=== PATIENT | male | born 1975 | race Caucasian/White ===

== ENCOUNTER 2016-05-28 01:34 | Observation (INO) | payer MEDICAID ==
[2016-05-28] MEDS ORDERED: ONDANSETRON 4 MG/2 ML VIAL IVP STA (02:16)
[2016-05-28] MEDS ORDERED: HYDROmorphone 1 MG/ML SYRINGE ONE ×3 (02:25→09:15)
[2016-05-28] MEDS ORDERED: ONDANSETRON 4 MG/2 ML VIAL ONE (02:25)
[2016-05-28] MEDS: HYDROmorphone 1 MG/ML SYRINGE IVP STA ×2 (02:28→10:38)
[2016-05-28] MEDS ORDERED: IOPAMIDOL-300 100 ML VIAL IVP ONE (03:26)
[2016-05-28] MEDS ORDERED: HYDROmorphone 1 MG/ML SYRINGE IVP STA (05:09)
[2016-05-28] MEDS ORDERED: ONDANSETRON 4 MG/2 ML VIAL IVP PRN (05:25)
[2016-05-28] MEDS: LACTATED RINGERS 1,000 ML IV SCH ×3 (06:32→10:05)
[2016-05-28] MEDS: AMPICILLIN/SULBACTAM 3 GM in SODIUM CHLORIDE 0.9% MINIBAG 100 ML IV SCH ×2 (06:32→11:29)
[2016-05-28] MEDS ORDERED: fentaNYL 100 MCG/2 ML VIAL IVP ONE (07:05)
[2016-05-28] MEDS ORDERED: LIDOCAINE-MPF 2% 5 ML VIAL IM ONE (07:05)
[2016-05-28] MEDS ORDERED: GLYCOPYRROLATE 1 MG/5 ML VIAL IVP ONE (07:05)
[2016-05-28] MEDS ORDERED: DEXAMETHASONE 4 MG/ML VIAL IVP ONE (07:05)
[2016-05-28] MEDS ORDERED: KETOROLAC 30 MG/ML VIAL IVP ONE (07:05)
[2016-05-28] MEDS ORDERED: PROPOFOL 200 MG/20 ML VIAL IVP ONE (07:05)
[2016-05-28] MEDS ORDERED: ONDANSETRON 4 MG/2 ML VIAL IVP ONE (07:05)
[2016-05-28] MEDS ORDERED: MIDAZOLAM 2 MG/2 ML VIAL IVP ONE (07:05)
[2016-05-28] MEDS ORDERED: NEOSTIGMINE 1 MG/1 ML 10 ML MDV IVP ONE (07:05)
[2016-05-28] MEDS ORDERED: ROCURONIUM 50 MG/5 ML VIAL IVP ONE (07:05)
[2016-05-28] MEDS ORDERED: SUCCINYLCHOLINE 200 MG/10 ML VIAL IVP ONE (07:05)
[2016-05-28] MEDS ORDERED: LACTATED RINGERS 1,000 ML IV ONE ×2 (07:17→08:12)
[2016-05-28] MEDS ORDERED: LIDOCAINE 1%-EPI 1:100000 20 ML MDV SUBQ ONE ×2 (07:39→08:32)
[2016-05-28] MEDS ORDERED: BUPIVACAINE 0.5% PF 30 ML VIAL SUBQ ONE ×2 (07:39→08:32)
[2016-05-28] MEDS: HYDROmorphone 1 MG/ML SYRINGE IVP PRN ×5 (09:18→13:29)
[2016-05-28] MEDS: fentaNYL 100 MCG/2 ML VIAL ONE ×2 (09:33→09:39)
[2016-05-28] MEDS ORDERED: BENZOCAINE/MENTHOL LOZENGE MM ONE (10:09)
[2016-05-28] MEDS: oxyCOD/ACETAMIN 5 MG/325 MG TABLET PO PRN ×2 (10:38→14:27)
[2016-05-28] MEDS ORDERED: HYDROmorphone 1 MG/ML SYRINGE IVP SCH (12:00)
== END 2016-05-28 15:00 | disposition home or self-care (01) ==
DX: K35.3 Acute appendicitis with localized peritonitis (principal); F17.210 Nicotine dependence, cigarettes, uncomplicated; Z86.19 Personal history of other infectious and parasitic diseases; Z72.89 Other problems related to lifestyle
CPT/HCPCS: 36415; 44970; 74177; 80053; 81003; 83690; 85025; 96374; 96375; 99284; 99285; A9270; G0378; J1170; J7120; Q9967

== ENCOUNTER 2016-05-30 22:59 | Inpatient (IN) | payer MEDICAID ==
[2016-05-30] MEDS ORDERED: ONDANSETRON 4 MG/2 ML VIAL ONE (23:43)
[2016-05-30] MEDS ORDERED: ONDANSETRON 4 MG/2 ML VIAL IVP STA (23:43)
[2016-05-31] MEDS ORDERED: HYDROmorphone 1 MG/ML SYRINGE IVP STA ×2 (00:19→01:22)
[2016-05-31] MEDS ORDERED: HYDROmorphone 1 MG/ML SYRINGE ONE ×3 (00:33→04:29)
[2016-05-31] MEDS ORDERED: IOPAMIDOL-300 100 ML VIAL IVP ONE (01:07)
[2016-05-31] MEDS: HYDROmorphone 1 MG/ML SYRINGE IVP PRN ×9 (04:31→23:31)
[2016-05-31] MEDS ORDERED: ONDANSETRON 4 MG/2 ML VIAL ONE (04:35)
[2016-05-31] MEDS: ONDANSETRON 4 MG/2 ML VIAL IVP PRN ×3 (04:36→16:33)
[2016-05-31] MEDS: D5.45NS W/20 MEQ KCL 1,000 ML IV SCH ×4 (05:01→23:38)
[2016-05-31] MEDS: SODIUM CHLORIDE FLUSH 0.9% 10 ML SYRINGE IVP SCH ×3 (05:08→21:18)
[2016-05-31] MEDS: PIPERACILLIN/TAZOBACTAM 3.375 GM in SODIUM CHLORIDE 0.9% MINIBAG 100 ML IV SCH ×4 (05:35→23:29)
[2016-05-31] MEDS: LORazepam 2 MG/ML SYRINGE IVP PRN ×2 (08:48→16:33)
[2016-05-31] MEDS: ENOXAPARIN 40 MG/0.4 ML SYRINGE SUBQ SCH (08:57)
[2016-05-31] MEDS: FAMOTIDINE 20 MG/50 ML 50 ML IV SCH ×2 (08:57→21:10)
[2016-05-31] MEDS: HYDROcod/ACETAM 5/325 MG TABLET PO PRN ×3 (10:54→21:13)
[2016-05-31] MEDS: PROCHLORPERAZINE 10 MG/2 ML VIAL IVP PRN ×2 (13:22→19:11)
[2016-06-01] MEDS: HYDROmorphone 1 MG/ML SYRINGE IVP PRN ×10 (05:24→23:45)
[2016-06-01] MEDS: PIPERACILLIN/TAZOBACTAM 3.375 GM in SODIUM CHLORIDE 0.9% MINIBAG 100 ML IV SCH ×4 (05:25→23:45)
[2016-06-01] MEDS: SODIUM CHLORIDE FLUSH 0.9% 10 ML SYRINGE IVP SCH ×3 (05:28→21:38)
[2016-06-01] MEDS: HYDROcod/ACETAM 5/325 MG TABLET PO PRN ×5 (07:40→21:37)
[2016-06-01] MEDS: D5.45NS W/20 MEQ KCL 1,000 ML IV SCH ×2 (08:11→17:20)
[2016-06-01] MEDS: FAMOTIDINE 20 MG/50 ML 50 ML IV SCH ×2 (08:48→21:38)
[2016-06-01] MEDS: ENOXAPARIN 40 MG/0.4 ML SYRINGE SUBQ SCH (08:50)
[2016-06-02] MEDS: ONDANSETRON 4 MG/2 ML VIAL IVP PRN (00:22)
[2016-06-02] MEDS: HYDROcod/ACETAM 5/325 MG TABLET PO PRN ×5 (01:48→19:11)
[2016-06-02] MEDS: HYDROmorphone 1 MG/ML SYRINGE IVP PRN ×10 (01:50→22:18)
[2016-06-02] MEDS: D5.45NS W/20 MEQ KCL 1,000 ML IV SCH ×3 (03:04→20:42)
[2016-06-02] MEDS: SODIUM CHLORIDE FLUSH 0.9% 10 ML SYRINGE IVP SCH ×3 (06:00→20:42)
[2016-06-02] MEDS: PIPERACILLIN/TAZOBACTAM 3.375 GM in SODIUM CHLORIDE 0.9% MINIBAG 100 ML IV SCH ×3 (06:11→17:59)
[2016-06-02] MEDS: ENOXAPARIN 40 MG/0.4 ML SYRINGE SUBQ SCH (08:07)
[2016-06-02] MEDS: FAMOTIDINE 20 MG/50 ML 50 ML IV SCH ×2 (08:08→20:42)
[2016-06-03] MEDS: HYDROmorphone 1 MG/ML SYRINGE IVP PRN ×9 (00:29→21:28)
[2016-06-03] MEDS: HYDROcod/ACETAM 5/325 MG TABLET PO PRN ×5 (00:29→21:28)
[2016-06-03] MEDS: PIPERACILLIN/TAZOBACTAM 3.375 GM in SODIUM CHLORIDE 0.9% MINIBAG 100 ML IV SCH ×4 (00:30→18:42)
[2016-06-03] MEDS: ONDANSETRON 4 MG/2 ML VIAL IVP PRN (03:19)
[2016-06-03] MEDS: SODIUM CHLORIDE FLUSH 0.9% 10 ML SYRINGE IVP PRN ×5 (03:19→21:28)
[2016-06-03] MEDS: D5.45NS W/20 MEQ KCL 1,000 ML IV SCH ×3 (04:45→18:42)
[2016-06-03] MEDS: SODIUM CHLORIDE FLUSH 0.9% 10 ML SYRINGE IVP SCH ×3 (05:15→18:51)
[2016-06-03] MEDS: FAMOTIDINE 20 MG/50 ML 50 ML IV SCH ×2 (09:16→21:28)
[2016-06-03] MEDS ORDERED: IOPAMIDOL-300 100 ML VIAL IVP ONE (14:51)
[2016-06-03] MEDS ORDERED: IOPAMIDOL-300 50 ML VIAL PO ONE (14:51)
[2016-06-04] MEDS: HYDROmorphone 1 MG/ML SYRINGE IVP PRN ×10 (02:11→22:40)
[2016-06-04] MEDS: HYDROcod/ACETAM 5/325 MG TABLET PO PRN ×4 (02:11→16:16)
[2016-06-04] MEDS: D5.45NS W/20 MEQ KCL 1,000 ML IV SCH ×4 (03:48→21:50)
[2016-06-04] MEDS: SODIUM CHLORIDE FLUSH 0.9% 10 ML SYRINGE IVP SCH ×3 (06:31→20:54)
[2016-06-04] MEDS: PIPERACILLIN/TAZOBACTAM 3.375 GM in SODIUM CHLORIDE 0.9% MINIBAG 100 ML IV SCH ×5 (06:31→18:31)
[2016-06-04] MEDS: FAMOTIDINE 20 MG/50 ML 50 ML IV SCH ×2 (09:14→20:53)
[2016-06-04] MEDS: SODIUM CHLORIDE FLUSH 0.9% 10 ML SYRINGE IVP PRN ×5 (09:15→22:40)
[2016-06-04] MEDS: ACETAMINOPHEN 1,000 MG/100 ML 100 ML IV SCH (18:07)
[2016-06-05] MEDS: PIPERACILLIN/TAZOBACTAM 3.375 GM in SODIUM CHLORIDE 0.9% MINIBAG 100 ML IV SCH ×4 (00:10→21:58)
[2016-06-05] MEDS: ACETAMINOPHEN 1,000 MG/100 ML 100 ML IV SCH ×3 (00:11→13:37)
[2016-06-05] MEDS: LORazepam 2 MG/ML SYRINGE IVP PRN ×2 (00:19→19:59)
[2016-06-05] MEDS: HYDROmorphone 1 MG/ML SYRINGE IVP PRN ×4 (00:33→19:43)
[2016-06-05] MEDS: SODIUM CHLORIDE FLUSH 0.9% 10 ML SYRINGE IVP PRN ×3 (04:47→19:59)
[2016-06-05] MEDS: D5.45NS W/20 MEQ KCL 1,000 ML IV SCH ×2 (05:27→21:55)
[2016-06-05] MEDS: SODIUM CHLORIDE FLUSH 0.9% 10 ML SYRINGE IVP SCH ×3 (06:01→22:09)
[2016-06-05] MEDS: ONDANSETRON 4 MG/2 ML VIAL IVP PRN (06:24)
[2016-06-05] MEDS: FAMOTIDINE 20 MG/50 ML 50 ML IV SCH ×2 (10:14→22:08)
[2016-06-05] MEDS ORDERED: HYDROmorphone 1 MG/ML SYRINGE IVP PRN (20:54)
[2016-06-05] MEDS ORDERED: diphenhydrAMINE INJ 50 MG/ML VIAL IVP PRN (21:10)
[2016-06-05] MEDS ORDERED: HYDROmorphone PCA 10 MG IV PRN (21:10)
[2016-06-05] MEDS ORDERED: LORazepam 2 MG/ML SYRINGE IVP PRN (21:14)
[2016-06-06] MEDS ORDERED: PIPERACILLIN/TAZOBACTAM 3.375 GM in SODIUM CHLORIDE 0.9% MINIBAG 100 ML IV SCH ×2 (04:00→05:00)
[2016-06-06] MEDS: SODIUM CHLORIDE FLUSH 0.9% 10 ML SYRINGE IVP SCH ×2 (05:47→08:52)
[2016-06-06] MEDS: D5.45NS W/20 MEQ KCL 1,000 ML IV SCH (07:47)
[2016-06-06] MEDS: KETOROLAC 30 MG/ML VIAL IVP PRN ×2 (07:49→14:07)
[2016-06-06] MEDS: FAMOTIDINE 20 MG/50 ML 50 ML IV SCH (08:08)
[2016-06-06] MEDS ORDERED: LORazepam 0.5 MG TABLET PO ONE (08:30)
[2016-06-06] MEDS: HYDROmorphone 2 MG TABLET PO PRN ×2 (08:37→14:48)
[2016-06-06] MEDS ORDERED: AMOX/CLAV 875 MG/125 MG TABLET PO SCH (09:00)
== END 2016-06-06 15:45 | disposition home or self-care (01) | DRG 863 ==
PROC: 0W9H30Z Drainage of Retroperitoneum with Drainage Device, Percutaneous Approach (ICD-10-PCS; principal; 2016-06-05)
DX: K68.11 Postprocedural retroperitoneal abscess (principal); K91.3 Postprocedural intestinal obstruction; E87.6 Hypokalemia; F17.200 Nicotine dependence, unspecified, uncomplicated

== ENCOUNTER 2016-06-05 | Outpatient (CLI) | payer MEDICAID | END 2016-06-05 07:20 | disposition short-term general hospital (02) | DX: R10.9 Unspecified abdominal pain (principal) | CPT/HCPCS: A0170; A0425; A0426 ==